=== PATIENT | female | born 1945 | race Caucasian/White ===

== ENCOUNTER 2018-02-22 04:59 | Day surgery (SDC) | payer OTHER ==
[2018-02-20 10:36] VITALS: BMI 30.5
[~2018-02-22 04:59] MED LIST: BUPIVACAINE HCL/PF 0.25% (2.5MG/ML) 10 ML VIAL IJ ONE; LIDOCAINE HCL 1% PRESERVATIVE FREE - 30ML VIAL IJ ONE; methylPREDNISolone ACET (DEPO) 80 MG/1 ML VIAL IJ ONE
[2018-02-22] MEDS ORDERED: TRIAMCINOLONE ACET 40MG/1ML VIAL ONE (07:23)
[2018-02-22] MEDS ORDERED: BUPIVACAINE HCL/PF 0.5% (5MG/ML) 10 ML VIAL ONE (07:23)
[2018-02-22] MEDS ORDERED: MIDAZOLAM HCL 2 MG/2 ML SINGLE DOSE VIAL ONE (07:33)
[2018-02-22] MEDS ORDERED: LIDOCAINE HCL/PF 2% SDV 5ML VIAL ONE (07:33)
[2018-02-22] MEDS ORDERED: SUCCINYLCHOLINE CHLORIDE 200 MG/10 ML VIAL ONE (07:33)
[2018-02-22] MEDS ORDERED: PROPOFOL 20 ML ONE (07:34)
[2018-02-22] MEDS ORDERED: oxyCODONE HCL 5 MG TABLET PO PRN (07:47)
[2018-02-22] MEDS ORDERED: methylPREDNISolone ACET (DEPO) 80 MG/1 ML VIAL IJ ONE (08:18)
[2018-02-22] MEDS ORDERED: LIDOCAINE HCL 1% PRESERVATIVE FREE - 30ML VIAL IJ ONE (08:18)
[2018-02-22] MEDS ORDERED: BUPIVACAINE HCL/PF 0.25% (2.5MG/ML) 10 ML VIAL IJ ONE ×2 (08:18)
[2018-02-22 11:24] VITALS: BP 139/74; PULSE 70; TEMP 97.9
--- NOTE | 2018-02-22 11:58 | OP ---
DATE OF OPERATION: 02/22/2018 PREOPERATIVE DIAGNOSIS: L5-S1 disk disease with lower back pain and lumbar radiculopathy. POSTOPERATIVE DIAGNOSIS: L5-S1 disk disease with lower back pain and lumbar radiculopathy. ATTENDING SURGEON: Colby Ferguson M.D. PROCEDURE: 1. Left L5-S1 epidural steroid injection. 2. Intraoperative fluoroscopy. ANESTHESIA: Local with IV sedation. ANESTHESIOLOGIST: Dr. Hunter INDICATIONS: The patient is a 72-year-old female with back pain and lumbar radiculopathy. Because of her intractable symptoms and failure to conservative treatment, she is here for epidural steroid injection. The prior injection helped her somewhat for several weeks. The risks of the procedure included, but are not limited to bleeding, infection, spinal headache and neurologic injury. The patient understands indications for procedure. Procedure in detail, risks and benefits and alternatives were explained for her lumbar condition and wished to proceed. No guarantees given for a favorable outcome. Even though scheduled for L5-S1 injection, the patient has been experiencing somewhat more right-sided pain and the patient was informed that injection will be given in the middle so both sided symptoms could potentially benefit from the injection. PROCEDURE IN DETAIL: The patient was taken to the operating room. She was placed in the prone position with a pillow under her hips. The lumbar region was cleaned with alcohol and prepped with Betadine. A skin wheal was raised with 5 mL of 1% Xylocaine. A 22-gauge spinal needle was inserted under AP and lateral fluoroscopic guidance from left-sided approach to reach the laminar approach to the left side epidural space. The center of the spinal canal was accessed. The needle bevel was turned cephalad and slightly to the right. Loss of resistance technique was utilized and there was no CSF or blood backflow; 80 mg of Depo-Medrol and 1 mL of 0.25% Marcaine were injected. The needle was withdrawn, a sterile bandage was applied. The patient tolerated the procedure well and was returned to supine position, moving both upper and lower extremities well. She is not complaining of headache. COLBY FERGUSON M.D. [id number] MTDD
== END 2018-02-22 09:45 | disposition home or self-care (01) ==
LOC: JASU-SURG 04:59
PROVIDERS: ATTEND Neurological Surgery
PROC: 3E0R33Z Introduction of Anti-inflammatory into Spinal Canal, Percutaneous Approach (ICD-10-PCS; 2018-02-22)
PROC: B01BZZZ Fluoroscopy of Spinal Cord (ICD-10-PCS; 2018-02-22)
PROC: 3E0R3BZ Introduction of Anesthetic Agent into Spinal Canal, Percutaneous Approach (ICD-10-PCS; principal; 2018-02-22 08:00)
DX: M54.5 Low back pain (principal); M51.17 Intervertebral disc disorders with radiculopathy, lumbosacral region
CPT/HCPCS: 76000-TC-FY; 82962

== ENCOUNTER 2019-05-28 05:20 | Day surgery (SDC) | payer OTHER ==
[2019-05-28] MEDS ORDERED: methylPREDNISolone ACET (DEPO) 80 MG/1 ML VIAL ONE (07:20)
[2019-05-28] MEDS ORDERED: BUPIVACAINE HCL/PF 0.25% (2.5MG/ML) 10 ML VIAL ONE (07:20)
[2019-05-28] MEDS ORDERED: LIDOCAINE HCL 1%, 10 MG/ML (20ML VIAL) ONE (07:20)
[2019-05-28] MEDS ORDERED: PROPOFOL 20 ML ONE (09:41)
[2019-05-28] MEDS ORDERED: KETOROLAC TROMETHAMINE 30 MG/1 ML VIAL ONE (09:41)
[2019-05-28] MEDS ORDERED: methylPREDNISolone ACET (DEPO) 80 MG/1 ML VIAL IJ ONE (09:46)
[2019-05-28] MEDS ORDERED: BUPIVACAINE HCL/PF 0.25% (2.5MG/ML) 10 ML VIAL IJ ONE (09:46)
[2019-05-28] MEDS ORDERED: LIDOCAINE HCL 1%, 10 MG/ML (20ML VIAL) NR ONE (09:46)
[2019-05-28 10:31] VITALS: TEMP 97.8
--- NOTE | 2019-05-28 11:26 | OP ---
DATE OF OPERATION: 05/28/2019 PREOPERATIVE DIAGNOSIS: L5-S1 disk herniation with degenerative disk narrowing and right L5-S1 radiculopathy. POSTOPERATIVE DIAGNOSIS: L5-S1 disk herniation with degenerative disk narrowing and right L5-S1 radiculopathy. ATTENDING SURGEON: Colby Ferguson MD PROCEDURES: 1. Right L5-S1 epidural steroid injection. 2. Intraoperative fluoroscopy. ANESTHESIA: Local with IV sedation. ANESTHESIOLOGIST: Sheyla Lunsford MD INDICATIONS: Patient is a 73-year-old female with intractable lower back pain, right lower extremity radiculopathy. Because of her intractable symptoms and failure of conservative treatment, she is here for her 2nd epidural steroid injection of the year. The prior injection did help her. Risks of the procedure include, but are not limited to, bleeding, infection, spinal headache, and neurological injury. The patient understands the indications for the procedure, procedure in detail, risks and benefits, and alternatives for treatment of the lumbar condition and wishes to proceed. No guarantees are given for a favorable outcome. PROCEDURE IN DETAIL: After patient was taken to the operating room, she was placed in a prone position with a pillow under her hips. Lumbar region was cleaned with alcohol and prepped with Betadine. Skin wheal was raised with 5 mL 1% Xylocaine. A 22-gauge spinal needle was inserted under AP and lateral fluoroscopic guidance from a right-sided approach to L5-S1. Cakl-np-fopaahbsrw technique was utilized, and there was no CSF or blood backflow. An intralaminar approach was chosen, 80 mL of Depo-Medrol, 1 mL 0.25% Marcaine were injected. This was done with AP and lateral fluoroscopic guidance. The patient tolerated the procedure well and was turned back into supine position. Moving bilateral lower extremities well. She was not complaining of headache. COLBY FERGUSON M.D. [id number]
[2019-05-28 12:23] VITALS: BP 127/81; PULSE 67
== END 2019-05-28 10:40 | disposition home or self-care (01) ==
LOC: JASU-SURG 05:20
PROVIDERS: ATTEND Neurological Surgery
PROC: 3E0R33Z Introduction of Anti-inflammatory into Spinal Canal, Percutaneous Approach (ICD-10-PCS; 2019-05-28)
PROC: B01BZZZ Fluoroscopy of Spinal Cord (ICD-10-PCS; 2019-05-28)
PROC: 3E0R3BZ Introduction of Anesthetic Agent into Spinal Canal, Percutaneous Approach (ICD-10-PCS; principal; 2019-05-28 09:30)
DX: M51.17 Intervertebral disc disorders with radiculopathy, lumbosacral region (principal); I10 Essential (primary) hypertension
CPT/HCPCS: 76000-TC-FY; 82962

== ENCOUNTER 2020-09-22 17:48 | Emergency (ER) | payer OTHER ==
[2020-09-22] MEDS ORDERED: ACETAMINOPHEN 1000 MG/100 ML VIAL (NON FORMULARY) IVPB ONE (17:54)
[2020-09-22 18:15] VITALS: TEMP 98.1; BMI 30.5
[2020-09-22] MEDS ORDERED: ONDANSETRON 4 MG/2 ML VIAL IVPUSH ONE (18:21)
[2020-09-22] MEDS ORDERED: ACETAMINOPHEN INJECTION 100 ML IVPB ONE (18:22)
[2020-09-22] MEDS ORDERED: ONDANSETRON 4 MG/2 ML VIAL ONE (18:22)
[2020-09-22 19:03] LABS: BASO % 0.9 % (0-2.0); EOS % 1.1 % (0-4.5); HEMATOCRIT 39.6 % (32.4-45.2); HEMOGLOBIN 13.6 GM/dL (10.7-15.3); LYMPH % 21.7 % (8-40); MCH 29.2 pg (25.7-33.7); MCHC 34.2 g/dl (32.0-36.0); MEAN CELL VOLUME 85.2 fl (80-96); MEAN PLT VOLUME 8.3 fl (7.5-11.1); MONO % 5.8 % (3.8-10.2); NEUT % 70.5 % (42.8-82.8); PLATELET COUNT 289 K/MM3 (134-434); RBC 4.66 M/mm3 (3.60-5.2); RDW 13.1 % (11.6-15.6); WHITE BLOOD COUNT 10.7 K/mm3 (4.0-10.0)
[2020-09-22] MEDS ORDERED: morphine CARPU-JECT 2 MG/1 ML DISP.SYRIN IVPUSH ONE (19:10)
[2020-09-22 19:19] LABS: POTASSIUM 4.4 mmol/L (3.5-5.1)
[2020-09-22 19:20] LABS: CALCIUM 9.4 mg/dL (8.5-10.1)
[2020-09-22 19:21] LABS: ALBUMIN 3.8 g/dl (3.4-5.0); BLOOD UREA NITROGEN 19.2 mg/dL (7-18)
[2020-09-22] MEDS ORDERED: MORPHINE SULFATE 2 MG/ML VIAL ONE (19:21)
[2020-09-22 19:24] LABS: CREATININE 0.8 mg/dL (0.55-1.3)
[2020-09-22 19:26] LABS: BILIRUBIN,TOTAL 0.3 mg/dL (0.2-1); TOT PROT 7.5 g/dl (6.4-8.2)
[2020-09-22 19:32] LABS: INR 1.03 (0.83-1.09); PROTHROMBIN TIME (PATIENT) 12.5 SEC (9.7-13.0)
[2020-09-22 19:33] LABS: PH,URINE 5.5 (5.0-8.0); URINE APPEARANCE CLEAR; URINE BILIRUBIN NEGATIVE (NEGATIVE); URINE COLOR YELLOW; URINE GLUCOSE (UA) NEGATIVE (NEGATIVE); URINE KETONE NEGATIVE (NEGATIVE); URINE LEUK ESTERASE NEGATIVE (NEGATIVE); URINE NITRITE NEGATIVE (NEGATIVE); URINE PROTEIN NEGATIVE (NEGATIVE); URINE UROBILINOGEN 0.2 mg/dL (0.2-1.0)
[2020-09-22] MEDS ORDERED: DEXTROSE 50%-WATER - 25 GM/50 ML VIAL IVPUSH ONE (20:10)
[2020-09-22] MEDS ORDERED: DEXTROSE 50%-WATER 25 GM/50 ML DISP.SYRIN ONE (20:10)
[2020-09-22] MEDS ORDERED: SODIUM CHLORIDE 0.9% 500 ML INFUS.BAG IV ONE (20:23)
[2020-09-22 21:40] VITALS: BP 142/51; PULSE 60
== END 2020-09-22 21:14 | disposition home or self-care (01) ==
LOC: JER 17:48
PROC: 3E033NZ Introduction of Analgesics, Hypnotics, Sedatives into Peripheral Vein, Percutaneous Approach (ICD-10-PCS; principal; 2020-09-22)
PROC: 3E033GC Introduction of Other Therapeutic Substance into Peripheral Vein, Percutaneous Approach (ICD-10-PCS; 2020-09-22)
DX: R10.32 Left lower quadrant pain (principal)
CPT/HCPCS: 36415; 74177-TC; 80053; 81003; 82962; 83690; 85025; 85610; 85730; 86850; 86900; 86901; 87086; 93005; 93010; 99285-25; J0131; Q9967

== ENCOUNTER 2021-07-22 09:46 | Emergency (ER) | payer OTHER ==
[2021-07-22] MEDS ORDERED: morphine CARPU-JECT 4 MG/1 ML DISP.SYRIN IVPUSH ONE (09:57)
[2021-07-22] MEDS ORDERED: morphine SULFATE 4 MG/ML VIAL ONE ×2 (10:08→10:30)
[2021-07-22] MEDS ORDERED: KETAMINE HCL 500 MG/10 ML VIAL IV ONE (10:57)
[2021-07-22] MEDS ORDERED: MIDAZOLAM HCL 2 MG/2 ML SINGLE DOSE VIAL IVPUSH ONE ×2 (11:00→11:01)
[2021-07-22] MEDS ORDERED: KETAMINE HCL 200 MG/20 ML VIAL ONE (11:27)
[2021-07-22] MEDS ORDERED: MIDAZOLAM HCL 2 MG/2 ML SINGLE DOSE VIAL ONE (11:28)
[2021-07-22 11:44] VITALS: TEMP 97.6; BMI 31.7
[2021-07-22] MEDS ORDERED: KETAMINE HCL 200 MG/20 ML VIAL IVPUSH ONE (11:45)
[2021-07-22] MEDS ORDERED: SODIUM CHLORIDE 1,000 ML IV STA (13:45)
[2021-07-22 13:51] VITALS: BP 97/56; PULSE 89
== END 2021-07-22 15:15 | disposition home or self-care (01) ==
LOC: JER 09:46
PROC: 0RSJ3ZZ Reposition Right Shoulder Joint, Percutaneous Approach (ICD-10-PCS; principal; 2021-07-22)
PROC: 3E033GC Introduction of Other Therapeutic Substance into Peripheral Vein, Percutaneous Approach (ICD-10-PCS; 2021-07-22)
PROC: 3E033GC Introduction of Other Therapeutic Substance into Peripheral Vein, Percutaneous Approach (ICD-10-PCS; 2021-07-22)
PROC: 3E033NZ Introduction of Analgesics, Hypnotics, Sedatives into Peripheral Vein, Percutaneous Approach (ICD-10-PCS; 2021-07-22)
PROC: 3E033NZ Introduction of Analgesics, Hypnotics, Sedatives into Peripheral Vein, Percutaneous Approach (ICD-10-PCS; 2021-07-22)
PROC: 3E0337Z Introduction of Electrolytic and Water Balance Substance into Peripheral Vein, Percutaneous Approach (ICD-10-PCS; 2021-07-22)
DX: S43.004A Unspecified dislocation of right shoulder joint, initial encounter (principal); W00.0XXA Fall on same level due to ice and snow, initial encounter
CPT/HCPCS: 70450-TC; 72125-TC; 73030-TC-RT-FY; 82962; 99285-25

== ENCOUNTER 2022-11-11 15:30 | Emergency (ER) | payer OTHER ==
[2022-11-11 15:36] VITALS: TEMP 98; BMI 28.8
[2022-11-11] MEDS ORDERED: SODIUM CHLORIDE 0.9% 500 ML INFUS.BAG IV ONE (15:59)
[2022-11-11] MEDS ORDERED: ONDANSETRON 4 MG/2 ML VIAL IVPUSH ONE (16:00)
[2022-11-11] MEDS ORDERED: ONDANSETRON 4 MG/2 ML VIAL ONE (16:03)
[2022-11-11 16:22] LABS: BASO % 0.8 % (0-2.0); EOS % 0.4 % (0-4.5); HEMATOCRIT 41.9 % (32.4-45.2); HEMOGLOBIN 14.4 GM/dL (10.7-15.3); LYMPH % 15.3 % (8-40); MCHC 34.4 g/dl (32.0-36.0); MEAN CELL VOLUME 84.1 fl (80-96); MEAN PLT VOLUME 8.4 fl (7.5-11.1); MONO % 3.6 % (3.8-10.2); NEUT % 79.9 % (42.8-82.8); PLATELET COUNT 265 10^3/uL (134-434); RBC 4.98 M/mm3 (3.60-5.2); RDW 13.1 % (11.6-15.6); WHITE BLOOD COUNT 9.5 K/mm3 (4.0-10.0)
[2022-11-11 16:45] LABS: CALCIUM 9.2 mg/dL (8.5-10.1)
[2022-11-11 16:46] LABS: ALBUMIN 3.7 g/dl (3.4-5.0); MAGNESIUM 2.1 mg/dL (1.8-2.4)
[2022-11-11 16:49] LABS: CREATININE 0.6 mg/dL (0.55-1.3)
[2022-11-11 16:50] LABS: BILIRUBIN,TOTAL 0.5 mg/dL (0.2-1); TOT PROT 7.4 g/dl (6.4-8.2)
[2022-11-11] MEDS ORDERED: SODIUM CHLORIDE 0.9% 1000 ML INFUS.BAG IV ONE (17:01)
[2022-11-11 17:09] LABS: URINE APPEARANCE Clear; URINE BILIRUBIN Negative (NEGATIVE); URINE COLOR Yellow; URINE GLUCOSE (UA) Negative (NEGATIVE); URINE KETONE Negative (NEGATIVE); URINE LEUK ESTERASE Trace (NEGATIVE); URINE NITRITE Negative (NEGATIVE); URINE PROTEIN Negative (NEGATIVE); URINE UROBILINOGEN 0.2 mg/dL (0.2-1.0)
[2022-11-11 18:32] VITALS: BP 143/57; PULSE 67; RESP 14
== END 2022-11-11 18:35 | disposition home or self-care (01) ==
LOC: JER 15:30
PROC: 3E033GC Introduction of Other Therapeutic Substance into Peripheral Vein, Percutaneous Approach (ICD-10-PCS; principal; 2022-11-11)
DX: R42 Dizziness and giddiness (principal); Z20.822 Contact with and (suspected) exposure to COVID-19
CPT/HCPCS: 0241U-QW; 36415; 70450-TC; 71045-TC-FY; 80053; 81003; 82962; 83735; 84443; 84484; 85025; 87086; 93005; 93010; 99285-25

== ENCOUNTER 2023-12-01 17:47 | Emergency (ER) | payer OTHER ==
[2023-12-01 17:51] VITALS: BP 157/65; PULSE 66; RESP 18; TEMP 98.3; BMI 29.2
[2023-12-01] MEDS ORDERED: ONDANSETRON 4 MG/2 ML VIAL ONE (18:01)
[2023-12-01] MEDS ORDERED: FAMOTIDINE 20 MG/50 ML IVPB 20 MG/50 ML MG IVPB ONE (18:01)
[2023-12-01] MEDS: FAMOTIDINE 20 MG/50 ML IVPB 20 MG/50 ML MG IVPB ONE (18:28)
[2023-12-01] MEDS: ONDANSETRON 4 MG/2 ML VIAL IVPUSH ONE (18:28)
[2023-12-01] MEDS: SODIUM CHLORIDE 500 ML IV STA (18:28)
[2023-12-01 18:48] LABS: BASO % 0.6 % (0-2.0); EOS % 1.2 % (0-4.5); HEMATOCRIT 40.9 % (32.4-45.2); HEMOGLOBIN 13.7 GM/dL (10.7-15.3); LYMPH % 24.2 % (8-40); MCH 28.7 pg (25.7-33.7); MCHC 33.5 g/dl (32.0-36.0); MEAN CELL VOLUME 85.7 fl (80-96); MEAN PLT VOLUME 8.1 fl (7.5-11.1); MONO % 5.8 % (3.8-10.2); NEUT % 68.2 % (42.8-82.8); PLATELET COUNT 238 10^3/uL (134-434); RBC 4.77 M/mm3 (3.60-5.2); RDW 12.9 % (11.6-15.6); WHITE BLOOD COUNT 9.9 K/mm3 (4.0-10.0)
[2023-12-01 19:00] LABS: VENOUS BASE EXCESS 0.4 mmol/L (-2-2); VENOUS O2 SATURATION 25.6 % (70-80); VENOUS PCO2 55.4 mmHg (38-52); VENOUS PH 7.316 (7.310-7.410)
[2023-12-01 19:02] LABS: PH,URINE 7.5 (5.0-8.0); URINE APPEARANCE CLEAR; URINE BILIRUBIN NEGATIVE (NEGATIVE); URINE COLOR YELLOW; URINE GLUCOSE (UA) NEGATIVE (NEGATIVE); URINE KETONE NEGATIVE (NEGATIVE); URINE LEUK ESTERASE NEGATIVE (NEGATIVE); URINE NITRITE NEGATIVE (NEGATIVE); URINE PROTEIN NEGATIVE (NEGATIVE); URINE UROBILINOGEN 0.2 mg/dL (0.2-1.0)
[2023-12-01 19:12] LABS: POTASSIUM 4.8 mmol/L (3.5-5.1)
[2023-12-01 19:13] LABS: ALBUMIN 3.2 g/dl (3.4-5.0); CALCIUM 9.6 mg/dL (8.5-10.1)
[2023-12-01 19:14] LABS: BLOOD UREA NITROGEN 16.2 mg/dL (7-18)
[2023-12-01 19:16] LABS: CREATININE 0.6 mg/dL (0.55-1.3)
[2023-12-01 19:18] LABS: BILIRUBIN,TOTAL 0.4 mg/dL (0.2-1); TOT PROT 6.5 g/dl (6.4-8.2)
[2023-12-01] MEDS: SODIUM CHLORIDE 1,000 ML IV STA (19:37)
[2023-12-01] MEDS ORDERED: CEPHALEXIN MONOHYDRATE 500 MG CAPSULE (UD) ONE (21:24)
[2023-12-01] MEDS: CEPHALEXIN MONOHYDRATE 500 MG CAPSULE (UD) PO ONE (21:25)
== END 2023-12-01 21:34 | disposition home or self-care (01) ==
LOC: JER 17:47
PROC: 3E033GC Introduction of Other Therapeutic Substance into Peripheral Vein, Percutaneous Approach (ICD-10-PCS; principal; 2023-12-01)
PROC: 3E033GC Introduction of Other Therapeutic Substance into Peripheral Vein, Percutaneous Approach (ICD-10-PCS; 2023-12-01)
PROC: 3E0337Z Introduction of Electrolytic and Water Balance Substance into Peripheral Vein, Percutaneous Approach (ICD-10-PCS; 2023-12-01)
PROC: 3E0337Z Introduction of Electrolytic and Water Balance Substance into Peripheral Vein, Percutaneous Approach (ICD-10-PCS; 2023-12-01)
DX: R53.1 Weakness (principal); R35.0 Frequency of micturition; R19.7 Diarrhea, unspecified; M54.50 Low back pain, unspecified; R11.0 Nausea; Z20.822 Contact with and (suspected) exposure to COVID-19
CPT/HCPCS: 0241U-QW; 36415; 74176-TC; 80053; 81003; 82010; 82803; 83605; 83690; 84484; 85025; 87086; 93005; 93010; 99285-25

== ENCOUNTER 2024-01-27 04:13 | Day surgery (SDC) | payer OTHER ==
[2024-01-25 12:21] VITALS: BMI 29.7
[2024-01-27] MEDS ORDERED: TRIAMCINOLONE ACET 40MG/1ML VIAL ONE (08:02)
[2024-01-27] MEDS ORDERED: LIDOCAINE HCL/PF 1% SDV 5ML VIAL ONE (08:11)
[2024-01-27] MEDS ORDERED: BUPIVACAINE HCL/PF 0.5% (5MG/ML) 10 ML VIAL ONE (08:11)
[2024-01-27] MEDS ORDERED: ACETAMINOPHEN 500 MG TABLET (FP) PO PRN (09:29)
[2024-01-27] MEDS: LIDOCAINE HCL 1% PRESERVATIVE FREE - 30ML VIAL IJ ONE (15:19)
[2024-01-27] MEDS: IOHEXOL 180 MG/1 ML ML IJ ONE (15:20)
[2024-01-27] MEDS: TRIAMCINOLONE ACET 40MG/1ML VIAL IJ ONE (15:21)
[2024-01-27] MEDS: BUPIVACAINE HCL/PF 0.5% (5MG/ML) 10 ML VIAL IJ ONE (15:21)
[2024-01-27 17:24] VITALS: RESP 18
[2024-01-27 17:26] VITALS: BP 136/70; PULSE 64; TEMP 97.4
== END 2024-01-27 16:15 | disposition home or self-care (01) ==
LOC: JASU-SURG 04:13
PROVIDERS: ATTEND Pain Medicine Pain Medicine
PROC: 3E0U3BZ Introduction of Anesthetic Agent into Joints, Percutaneous Approach (ICD-10-PCS; 2024-01-27)
PROC: 3E0U33Z Introduction of Anti-inflammatory into Joints, Percutaneous Approach (ICD-10-PCS; principal; 2024-01-27 15:18)
DX: G89.4 Chronic pain syndrome (principal)
CPT/HCPCS: 76000-TC-FY

== ENCOUNTER 2024-04-23 16:09 | Observation (INO) | payer OTHER ==
[2024-04-23] MEDS: SODIUM CHLORIDE 0.9% 500 ML INFUS.BAG IV ONE (16:29)
[2024-04-23 16:30] LABS: BASO % 0.6 % (0-2.0); EOS % 0.9 % (0-4.5); HEMATOCRIT 41.7 % (32.4-45.2); HEMOGLOBIN 14.2 GM/dL (10.7-15.3); LYMPH % 19.2 % (8-40); MCH 29.3 pg (25.7-33.7); MCHC 33.9 g/dl (32.0-36.0); MEAN CELL VOLUME 86.3 fl (80-96); MONO % 5.1 % (3.8-10.2); NEUT % 74.2 % (42.8-82.8); PLATELET COUNT 232 10^3/uL (134-434); RBC 4.84 M/mm3 (3.60-5.2); RDW 13.8 % (11.6-15.6); WHITE BLOOD COUNT 9.6 K/mm3 (4.0-10.0)
[2024-04-23 16:54] LABS: ALBUMIN 3.4 g/dl (3.4-5.0); BLOOD UREA NITROGEN 9.7 mg/dL (7-18); CALCIUM 10.3 mg/dL (8.5-10.1); MAGNESIUM 1.9 mg/dL (1.8-2.4)
[2024-04-23 16:58] LABS: CREATININE 0.6 mg/dL (0.55-1.3)
[2024-04-23 16:59] LABS: BILIRUBIN,TOTAL 0.4 mg/dL (0.2-1); TOT PROT 7.1 g/dl (6.4-8.2)
[2024-04-23] MEDS ORDERED: ONDANSETRON 4 MG/2 ML VIAL ONE (17:05)
[2024-04-23 17:13] LABS: INR 0.91 (0.83-1.09); PROTHROMBIN TIME (PATIENT) 10.3 SEC (9.7-13.0)
[2024-04-23 17:17] LABS: ACTIVATED PTT 29.3 SECONDS (25.2-36.5)
[2024-04-23] MEDS: ONDANSETRON 4 MG/2 ML VIAL IVPUSH ONE (17:39)
[2024-04-23 17:40] VITALS: RESP 18
[2024-04-23 18:34] LABS: URINE APPEARANCE CLEAR; URINE BILIRUBIN NEGATIVE (NEGATIVE); URINE COLOR YELLOW; URINE GLUCOSE (UA) NEGATIVE (NEGATIVE); URINE KETONE NEGATIVE (NEGATIVE); URINE LEUK ESTERASE NEGATIVE (NEGATIVE); URINE NITRITE NEGATIVE (NEGATIVE); URINE PROTEIN NEGATIVE (NEGATIVE); URINE UROBILINOGEN 0.2 mg/dL (0.2-1.0)
[2024-04-23] MEDS ORDERED: PATIENT'S OWN MEDICATION (NON-FORMULARY) (Alprazolam [Xanax] 0.5 MG Tablet) PO SCH (22:45)
[2024-04-23] MEDS: ALPRAZolam 0.25 MG TABLET PO PRN (22:53)
[2024-04-24 00:57] VITALS: BMI 29.7
[2024-04-24] MEDS: INSULIN ASPART SLIDING SCALE (NOVOLOG) 1 VIAL SQ SCH ×2 (06:51→10:52)
[2024-04-24 08:13] LABS: HEMATOCRIT 46.2 % (32.4-45.2); HEMOGLOBIN 15.4 GM/dL (10.7-15.3); MCHC 33.4 g/dl (32.0-36.0); MEAN CELL VOLUME 86.9 fl (80-96); MEAN PLT VOLUME 8.4 fl (7.5-11.1); PLATELET COUNT 258 10^3/uL (134-434); RBC 5.31 M/mm3 (3.60-5.2); RDW 13.4 % (11.6-15.6); WHITE BLOOD COUNT 12.7 K/mm3 (4.0-10.0)
[2024-04-24 08:23] LABS: POTASSIUM 4.1 mmol/L (3.5-5.1)
[2024-04-24 08:26] LABS: ALBUMIN 3.4 g/dl (3.4-5.0); BLOOD UREA NITROGEN 10.2 mg/dL (7-18); CALCIUM 9.5 mg/dL (8.5-10.1); MAGNESIUM 1.9 mg/dL (1.8-2.4)
[2024-04-24 08:29] LABS: CREATININE 0.7 mg/dL (0.55-1.3); PHOSPHOROUS 3.1 mg/dL (2.5-4.9)
[2024-04-24 08:31] LABS: BILIRUBIN,TOTAL 0.5 mg/dL (0.2-1)
[2024-04-24] MEDS: PANTOPRAZOLE 20 MG TABLET PO SCH (10:49)
[2024-04-24] MEDS: ASPIRIN 81 MG CHEWABLE TABLETS PO SCH (10:49)
[2024-04-24] MEDS: ESCITALOPRAM OXALATE 10 MG TABLET PO SCH (10:49)
[2024-04-24] MEDS: ENOXAPARIN NA (PORCINE) 40 MG/0.4 ML DISP.SYRIN SQ SCH (10:49)
[2024-04-24] MEDS: amLODIPine BESYLATE 5 MG TABLET (FP) PO SCH (10:49)
[2024-04-24 13:54] VITALS: BP 130/67; PULSE 111; TEMP 99
[2024-04-24] MEDS: CARBIDOPA/LEVODOPA 25/100 TABLET (FP) PO SCH (14:03)
[2024-04-24] MEDS ORDERED: ATORVASTATIN CA 10 MG TABLET (FP) PO SCH (22:00)
== END 2024-04-24 14:40 | disposition home health service (06) ==
LOC: JER 16:09 → UNDOADMOB 17:45 → JERBED 17:45 → J4S 19:27 → JERBED 19:27 → INTOOBSV 21:36 → OBSVTOIN 21:36 → J4S 04-24 07:36 → JERBED 04-24 07:36
PROVIDERS: ADMIT Internal Medicine; ATTEND Nurse Practitioner Acute Care
PROC: 3E023GC Introduction of Other Therapeutic Substance into Muscle, Percutaneous Approach (ICD-10-PCS; principal; 2024-04-24)
PROC: 3E013VG Introduction of Insulin into Subcutaneous Tissue, Percutaneous Approach (ICD-10-PCS; 2024-04-24)
PROC: 3E033GC Introduction of Other Therapeutic Substance into Peripheral Vein, Percutaneous Approach (ICD-10-PCS; 2024-04-24)
PROC: 3E0337Z Introduction of Electrolytic and Water Balance Substance into Peripheral Vein, Percutaneous Approach (ICD-10-PCS; 2024-04-24)
DX: R55 Syncope and collapse (principal); G20.A1 Parkinson's disease without dyskinesia, without mention of fluctuations; I25.119 Atherosclerotic heart disease of native coronary artery with unspecified angina pectoris; I10 Essential (primary) hypertension; E78.5 Hyperlipidemia, unspecified; K57.90 Diverticulosis of intestine, part unspecified, without perforation or abscess without bleeding; D64.9 Anemia, unspecified; E11.9 Type 2 diabetes mellitus without complications; Z96.653 Presence of artificial knee joint, bilateral
CPT/HCPCS: 0241U-QW; 36415; 70450-TC; 71045-TC-FY; 80053; 80061; 81003; 82962; 83036; 83735; 84100; 84439; 84443; 84484; 85025; 85027; 85610; 85730; 86850; 86900; 86901; 87086; 93005; 93010; 93306-TC; 93880-TC; 96372; 96374; 97116-GP; 97161-GP; 99285-25; G0378

== ENCOUNTER 2024-08-26 22:15 | Emergency (ER) | payer OTHER ==
[2024-08-26] MEDS: ACETAMINOPHEN 325 MG TABLET (FP) PO ONE (22:20)
[2024-08-26 22:23] VITALS: BP 158/72; PULSE 82; RESP 18; TEMP 97.7; BMI 25.3
[2024-08-26] MEDS ORDERED: ACETAMINOPHEN 325 MG TABLET (FP) ONE (22:30)
[2024-08-26] MEDS ORDERED: DIPHTH,PERTUSS(ACELL),TET 0.5 ML DISP.SYRIN IM ONE (23:45)
[2024-08-26] MEDS: DIPHTH,PERTUSS(ACELL),TET 0.5 ML DISP.SYRIN IM ONE (23:52)
== END 2024-08-27 01:50 | disposition home or self-care (01) ==
LOC: JER 22:15
PROC: 3E0234Z Introduction of Serum, Toxoid and Vaccine into Muscle, Percutaneous Approach (ICD-10-PCS; principal; 2024-08-26)
DX: S00.81XA Abrasion of other part of head, initial encounter (principal); M25.552 Pain in left hip; Z23 Encounter for immunization; W00.0XXA Fall on same level due to ice and snow, initial encounter
CPT/HCPCS: 70450-TC; 71046-TC-FY; 72125-TC; 72170-TC-FY; 90471; 90715; 99285-25

== ENCOUNTER 2025-03-11 18:57 | Inpatient (IN) | payer OTHER ==
[2025-03-11 19:10] VITALS: BMI 28.3
[2025-03-11 20:26] LABS: ABSOLUTE IMMATURE GRANULOCYTES 0.02 x10^3/uL (0.0-0.031); BASOPHILS # 0.05 x10^3/uL (0.01-0.08); EOSINOPHIL % 1.5 % (0.7-5.8); EOSINOPHILS # 0.16 x10^3/uL (0.04-0.36); MCHC 31.3 g/dl (32.2-35.5); MEAN CELL VOLUME 89.0 fl (79.4-94.8); MEAN PLT VOLUME 10.2 fl (9.4-12.3); MONOCYTE # 0.62 x10^3/uL (0.24-0.86); MONOCYTE % 5.7 % (4.7-12.5); RDW 12.5 % (12.4-16.6)
[2025-03-11 20:27] LABS: URINE APPEARANCE CLEAR; URINE BILIRUBIN NEGATIVE (NEGATIVE); URINE COLOR YELLOW; URINE GLUCOSE (UA) 3+ (NEGATIVE); URINE KETONE NEGATIVE (NEGATIVE); URINE LEUK ESTERASE NEGATIVE (NEGATIVE); URINE NITRITE NEGATIVE (NEGATIVE); URINE PROTEIN NEGATIVE (NEGATIVE); URINE UROBILINOGEN 0.2 mg/dL (0.2-1.0)
[2025-03-11 20:41] LABS: GLUCOSE,RANDOM 132.0 mg/dL (74-106)
[2025-03-11 20:42] LABS: TOT PROT 6.9 g/dl (6.4-8.2)
[2025-03-11 20:43] LABS: CO2 28.0 mmol/L (21-32)
[2025-03-11 20:44] LABS: ALK PHOS 99.0 U/L (40-150)
[2025-03-11 20:47] LABS: CREATININE 0.73 mg/dL (0.55-1.3); SGOT/AST 34.0 U/L (5-34); SGPT/ALT 24.0 U/L (0-55)
[2025-03-11] MEDS: PRO IVPB ONE (22:40)
[2025-03-11] MEDS: [UNRECOGNIZED DRUG - OTHER] IVPB ONE (22:40)
[2025-03-11] MEDS: IMMUN GLOB IVPB ONE (22:40)
[2025-03-11] MEDS: IGA IVPB ONE (22:40)
[2025-03-11] MEDS: SODIUM CHLORIDE 0.9% 500 ML INFUS.BAG IV ONE (22:44)
[2025-03-12] MEDS ORDERED: ACETAMINOPHEN INJECTION 100 ML ONE ×2 (00:13→06:28)
[2025-03-12] MEDS: ACETAMINOPHEN 1000 MG/100 ML BAG IVPB ONE (00:29)
[2025-03-12] MEDS: SODIUM CHLORIDE 1,000 ML IV SCH ×2 (00:29→17:08)
[2025-03-12] MEDS ORDERED: ATORVASTATIN CA 10 MG TABLET (FP) PO SCH ×3 (00:30→22:00)
[2025-03-12] MEDS ORDERED: ATORVASTATIN CA 10 MG TABLET (FP) ONE (01:01)
[2025-03-12] MEDS ORDERED: ATORVASTATIN CA 20 MG TABLET (FP) ONE (01:01)
[2025-03-12] MEDS: ATORVASTATIN CA 10 MG TABLET (FP) PO ONE (01:21)
[2025-03-12] MEDS ORDERED: CARBIDOPA/LEVODOPA 25/100 TABLET (FP) PO SCH (06:00)
[2025-03-12] MEDS ORDERED: PANTOPRAZOLE 20 MG TABLET PO ONE (06:03)
[2025-03-12] MEDS: PYRIDOSTIGMINE BROMIDE 60 MG TABLET PO SCH (06:05)
[2025-03-12] MEDS: PANTOPRAZOLE 20 MG TABLET PO SCH (06:06)
[2025-03-12] MEDS: ACETAMINOPHEN 1000 MG/100 ML BAG IVPB PRN (06:29)
[2025-03-12 06:41] LABS: ABSOLUTE IMMATURE GRANULOCYTES 0.03 x10^3/uL (0.0-0.031); BASOPHILS # 0.03 x10^3/uL (0.01-0.08); EOSINOPHIL % 1.9 % (0.7-5.8); EOSINOPHILS # 0.14 x10^3/uL (0.04-0.36); MCHC 31.8 g/dl (32.2-35.5); MEAN CELL VOLUME 88.2 fl (79.4-94.8); MEAN PLT VOLUME 10.2 fl (9.4-12.3); MONOCYTE # 0.51 x10^3/uL (0.24-0.86); MONOCYTE % 6.9 % (4.7-12.5); RDW 12.5 % (12.4-16.6)
[2025-03-12 07:14] LABS: GLUCOSE,RANDOM 99.0 mg/dL (74-106); TOT PROT 7.4 g/dl (6.4-8.2)
[2025-03-12 07:15] LABS: CO2 24.0 mmol/L (21-32)
[2025-03-12 07:17] LABS: ALK PHOS 91.0 U/L (40-150)
[2025-03-12 07:19] LABS: CREATININE 0.57 mg/dL (0.55-1.3); SGOT/AST 31.0 U/L (5-34); SGPT/ALT 19.0 U/L (0-55)
[2025-03-12] MEDS: INSULIN ASPART SLIDING SCALE (NOVOLOG) 1 VIAL SQ SCH (08:00)
[2025-03-12] MEDS: ESCITALOPRAM OXALATE 20 MG TABLET PO SCH (10:23)
[2025-03-12] MEDS: LOSARTAN POTASSIUM 50 MG TABLET PO SCH (10:23)
[2025-03-12] MEDS: ASPIRIN 81 MG CHEWABLE TABLETS PO SCH (10:23)
[2025-03-12] MEDS: amLODIPine BESYLATE 5 MG TABLET (FP) PO SCH (10:24)
[2025-03-12] MEDS: ENOXAPARIN NA (PORCINE) 40 MG/0.4 ML DISP.SYRIN SQ SCH (10:24)
[2025-03-12] MEDS ORDERED: IBUPROFEN 400 MG TABLET (FP) PO ONE (10:34)
[2025-03-12] MEDS: IBUPROFEN 400 MG TABLET (FP) PO ONE ×2 (10:43→10:44)
[2025-03-12] MEDS: ACETAMINOPHEN 325 MG TABLET (FP) PO SCH (22:15)
[2025-03-12] MEDS: IMMUN GLOB G(IGG)/PRO/IGA 0-50 400 ML IVPB SCH (22:18)
[2025-03-13 08:57] LABS: ABSOLUTE IMMATURE GRANULOCYTES 0.01 x10^3/uL (0.0-0.031); BASOPHILS # 0.04 x10^3/uL (0.01-0.08); EOSINOPHIL % 2.6 % (0.7-5.8); EOSINOPHILS # 0.15 x10^3/uL (0.04-0.36); MCHC 31.5 g/dl (32.2-35.5); MEAN CELL VOLUME 88.8 fl (79.4-94.8); MEAN PLT VOLUME 10.9 fl (9.4-12.3); MONOCYTE # 0.41 x10^3/uL (0.24-0.86); MONOCYTE % 7.2 % (4.7-12.5); RDW 12.4 % (12.4-16.6)
[2025-03-13 09:29] LABS: TOT PROT 8.4 g/dl (6.4-8.2)
[2025-03-13 09:30] LABS: CO2 25.0 mmol/L (21-32); GLUCOSE,RANDOM 121.0 mg/dL (74-106)
[2025-03-13 09:32] LABS: ALK PHOS 87.0 U/L (40-150)
[2025-03-13 09:34] LABS: SGOT/AST 31.0 U/L (5-34); SGPT/ALT 15.0 U/L (0-55)
[2025-03-13 09:35] LABS: CREATININE 0.55 mg/dL (0.55-1.3)
[2025-03-13] MEDS: MAGNESIUM OXIDE 400 MG TABLET (FP) PO ONE (11:12)
[2025-03-13] MEDS: IBUPROFEN 400 MG TABLET (FP) PO ONE (14:34)
[2025-03-13] MEDS: INSULIN GLARGINE (LANTUS) 100 UNITS/ML UNITS SQ SCH (21:43)
[2025-03-14 09:09] LABS: ABSOLUTE IMMATURE GRANULOCYTES 0.01 x10^3/uL (0.0-0.031); BASOPHILS # 0.04 x10^3/uL (0.01-0.08); EOSINOPHIL % 2.5 % (0.7-5.8); EOSINOPHILS # 0.14 x10^3/uL (0.04-0.36); MCHC 31.5 g/dl (32.2-35.5); MEAN CELL VOLUME 89.2 fl (79.4-94.8); MEAN PLT VOLUME 9.8 fl (9.4-12.3); MONOCYTE # 0.39 x10^3/uL (0.24-0.86); MONOCYTE % 7.0 % (4.7-12.5); RDW 12.7 % (12.4-16.6)
[2025-03-14 09:29] LABS: GLUCOSE,RANDOM 229.0 mg/dL (74-106)
[2025-03-14 09:30] LABS: CO2 25.0 mmol/L (21-32); TOT PROT 8.9 g/dl (6.4-8.2)
[2025-03-14 09:32] LABS: ALK PHOS 85.0 U/L (40-150)
[2025-03-14 09:35] LABS: CREATININE 0.54 mg/dL (0.55-1.3); SGOT/AST 39.0 U/L (5-34); SGPT/ALT 22.0 U/L (0-55)
[2025-03-14] MEDS: NAPH,MB-DB/K PH,MBDB POWDER PACKET PO SCH (12:32)
[2025-03-14] MEDS: MAGNESIUM OXIDE 400 MG TABLET (FP) PO ONE (12:32)
[2025-03-14] MEDS: INSULIN ASPART SLIDING SCALE (NOVOLOG) 1 VIAL SQ SCH (17:16)
[2025-03-14] MEDS ORDERED: INSULIN ASPART SLIDING SCALE (NOVOLOG) 1 VIAL SQ ONE (21:48)
[2025-03-15 10:04] VITALS: BP 140/76; PULSE 88; RESP 17; TEMP 97.9
== END 2025-03-15 10:00 | disposition home or self-care (01) | DRG 57 ==
LOC: JER 18:57 → JERBED 23:16 → J6W TELE 03-12 12:02
PROVIDERS: ADMIT Hospitalist; ATTEND Nurse Practitioner Family
DX: G70.01 Myasthenia gravis with (acute) exacerbation (principal); I10 Essential (primary) hypertension; E11.9 Type 2 diabetes mellitus without complications; F41.9 Anxiety disorder, unspecified; F32.A Depression, unspecified; E78.5 Hyperlipidemia, unspecified
CPT/HCPCS: 36415; 70551-TC; 71045-TC-FY; 80053; 81003; 82962; 83036; 83735; 84100; 85025; 87086; 87637-QW; 93005; 93010; 94010; 97116-GP; 97162-GP; 99285-25; J1459

== ENCOUNTER 2025-03-29 11:17 | Day surgery (SDC) | payer OTHER ==
[2025-03-29] MEDS: ACETAMINOPHEN 500 MG TABLET (FP) PO ONE (11:39)
[2025-03-29] MEDS: IMMUN GLOB G(IGG)/PRO/IGA 0-50 400 ML IVPB ONE (12:00)
[2025-03-29 15:37] VITALS: PULSE 66
[2025-03-29 15:42] VITALS: BP 121/57; RESP 18; TEMP 98.2
== END 2025-03-29 15:44 | disposition home or self-care (01) ==
LOC: JINFUSION 11:17 → J7W 11:18 → JINFUSION 15:44
PROVIDERS: ATTEND Nurse Practitioner Family
PROC: 30233S1 Transfusion of Nonautologous Globulin into Peripheral Vein, Percutaneous Approach (ICD-10-PCS; principal; 2025-03-29)
DX: G70.00 Myasthenia gravis without (acute) exacerbation (principal)
CPT/HCPCS: 96365; 96366; J1459